=== PATIENT | male | born 1965 | race Caucasian/White ===

== ENCOUNTER 2022-09-21 06:23 | Day surgery (SDC) | payer BC, SELFPAY ==
--- NOTE | 2022-09-20 09:54 | HO.ANESPROP2 ---
Documented by User: Perla Laurent NP 09/20/22 09:56 HPI - Anesthesia Eval Consult details Narrative: 57yo M for Colonoscopy [facility] Past Medical History Medical History Colon polyps Surgical History Surgical History (Updated 09/21/22 @ 06:57 by Ratna Ramirez RN) Hx of appendectomy Hx of colonoscopy Hx of wisdom tooth extraction Social History Social History Patient Tobacco Use Status: Never used Tobacco Substance Use Frequency: Occasionally Are you DNR?: No Advance Directives: No Advance Directives Information Provided: Yes Nutrition Risks: No Nutritional Risk Meds Allergies Allergy/AdvReac Type Severity Reaction Status Date / Time No Known Allergies Allergy Verified 09/21/22 06:37 Home Medications Medication Instructions Recorded Confirmed Last Taken Type No Known Home Meds 09/21/22 09/21/22 Unknown History Exam Exam Date and Time: September 20, 2022 0954 Assessment and Plan Assessment Anesthesia Assessment: Chart Reviewed Documented by User: Gary Nevarez MD 09/21/22 16:17 [facility] Past Medical History Medical History Colon polyps Functional capacity: independent ambulation Family History Family history of problems with anesthesia: No Surgical History Surgical History (Updated 09/21/22 @ 06:57 by Ratna Ramirez RN) Hx of appendectomy Hx of colonoscopy Hx of wisdom tooth extraction History of Problems with Anesthesia: No Social History Social History Patient Tobacco Use Status: Never used Tobacco Substance Use Frequency: Occasionally Are you DNR?: No Advance Directives: No Advance Directives Information Provided: Yes Nutrition Risks: No Nutritional Risk Meds Allergies Allergy/AdvReac Type Severity Reaction Status Date / Time No Known Allergies Allergy Verified 09/21/22 06:37 Home Medications Medication Instructions Recorded Confirmed Last Taken Type No Known Home Meds 09/21/22 09/21/22 Unknown History Exam Airway Mallampati Class: III TM Dist: >3cm Neck ROM: Full Loose/Missing/Broken Teeth: Yes (Fillings ) Heart: S1,S2 Lungs: b/l breath sounds Assessment and Plan Assessment Anesthesia Assessment: Anesthesia Plan Discussed Final Anesthetic Review Family History of Problems with Anesthesia: No History of Problems with Anesthesia: No NPO: Yes ASA Class: I Final Preanesthetic Review: Meds/Allgs Chart Reviewed and Anes Risks/Benef Reviewed Patient Risk: Intermediate Procedure Risk: Intermediate Anesthetic Plan Anesthetic Plan: MAC: Disposition: Standard PACU
[2022-09-21] MEDS: Lactated Ringers 1,000 ML 100 ML IVCONT (06:39)
[2022-09-21 06:58] VITALS: BP 140/98; PULSE 62; RESP 18; TEMP 36.5; O2SAT 100
[2022-09-21 06:59] VITALS: BMI 24.3
--- NOTE | 2022-09-21 07:33 | MHC.SHP ---
Pre-Procedural Eval Section A Date of Service: 09/21/22 Section B Chief Complaint: screening Details of Present Illness: screening Relevant Family History (Specify if Yes): No Relevant Social History: None Present Medications: see Short Stay Collaborative assessment Medical History: No relevant PMH History of Previous Operations: No relevant previous surgery Allergies: Allergies Allergy/AdvReac Type Severity Reaction Status Date / Time No Known Allergies Allergy Verified 09/21/22 06:37 Review of Systems Sugical H&P ROS: Negative: Constitution, Cardiovascular, Respiratory, Neurological, Psychiatric, Hem-Onc, Allergic/Immunologic, Gastrointestinal, Genitourinary, Musculoskeletal, Integumentary, Endocrine and Eyes/Ears/Nose/Throat Exam Surgical H&P Exam: Normal: HEENT, Normal: Heart, Normal: Lungs, Normal: Extremities, Normal: Abdomen, Normal: Skin and Normal: Neurological Plan Diagnosis/Plan: Unchanged I have reviewed the history and physical and performed a pertinent physical examination on my patient. No changes have occurred unless specified. Time Spent With Patient Time: Total time managing care of this patient today ____ minutes.
--- NOTE | 2022-09-21 07:58 | PM.OP ---
Brief Operative Note Date of Service: 09/21/22 Pre-op diagnosis: screening Post-op diagnosis: same Procedure: colonscopy Surgeon: Jeremi Israel Anesthesia: MAC Was an [employer] used for this Procedure?: No Estimated blood loss (mL): 0 Pathology: none sent Condition: stable Disposition: PACU
[2022-09-21 08:00] VITALS: BP 113/70; PULSE 71; RESP 18; TEMP 36.3; O2SAT 98
[2022-09-21 08:15] VITALS: BP 121/78; PULSE 70; RESP 16; TEMP 36.3; O2SAT 96
--- NOTE | 2022-09-21 08:30 | OP_ITS ---
SURGEON: Jeremi Israel MD INDICATIONS: Colon cancer screening and family history of colon polyps. PREOPERATIVE DIAGNOSIS: POSTOPERATIVE DIAGNOSIS: PROCEDURE PERFORMED: Colonoscopy to the terminal ileum. ESTIMATED BLOOD LOSS: COMPLICATIONS: ANESTHESIA: Monitored anesthesia care. ASSISTANTS: SPECIMENS: DESCRIPTION OF PROCEDURE: Date: 09/21/22. The history and physical was performed. The risks and benefits of the procedure were explained to the patient, and informed consent was obtained. The patient was placed in the left lateral decubitus position. A digital rectal exam was performed and was found to be normal. The Olympus pediatric video colonoscope was introduced into the rectum and advanced to the cecum without difficulty. The cecum was identified by transillumination, palpation, and identification of ileocecal valve. Examination was performed. The scope was removed. He tolerated the procedure well and was returned to the recovery area in stable condition. FINDINGS: The terminal ileum was examined and appeared normal. The visualized colonic mucosa was normal. The quality of the prep was good. No polyps were identified. Retroflexed examination showed some moderate-sized internal hemorrhoids. IMPRESSION: Normal colonoscopy. RECOMMENDATION: 1. Follow up as needed. 2. Repeat colonoscopy is recommended in 5 years because of family history of colon polyps. MD THANIA Erickson/DEANDRE / [id number] MTDD
== END 2022-09-21 09:17 | disposition home or self-care (01) ==
PROVIDERS: PCP Internal Medicine; Visit Provider Internal Medicine Gastroenterology
PROC: 0DJD8ZZ Inspection of Lower Intestinal Tract, Via Natural or Artificial Opening Endoscopic (ICD-10-PCS; CPT 45378; principal; 2022-09-21 07:30)
DX: Z12.11 Encounter for screening for malignant neoplasm of colon (principal); Z86.010 Personal history of colon polyps; Z83.71 Family history of colonic polyps; K64.8 Other hemorrhoids
CPT/HCPCS: 45378